=== PATIENT | female | born 1995 | race African-American/Black ===

== ENCOUNTER 2020-09-21 16:00 | Emergency (ER) | payer SELFPAY ==
[~2020-09-21] VITALS: Ht 177.8 cm; Wt 73.0 kg
[2020-09-21] MEDS ORDERED: IBUPROFEN 600MG TABLET PO ONE (16:45)
[2020-09-21] MEDS ORDERED: ACETAMINOPHEN 325MG TABLET PO ONE (18:15)
[2020-09-21] MEDS ORDERED: HYDR-4346 MT (18:27)
[2020-09-21] MEDS ORDERED: IBUP-2029 MT (18:27)
[2020-09-21 18:41] VITALS: BP 120/88
[2020-09-21] MEDS ORDERED: TETANUS, DIPHTHERIA, PERTUSSIS VAC/PF 0.5ML (>7YR OLD) IM ONE (18:45)
== END 2020-09-21 18:44 | disposition home or self-care (01) ==
LOC: ER 16:00
DX: S62.326A Displaced fracture of shaft of fifth metacarpal bone, right hand, initial encounter for closed fracture (principal); V00.831A Fall from motorized mobility scooter, initial encounter; Y93.89 Activity, other specified; Y92.89 Other specified places as the place of occurrence of the external cause; R03.0 Elevated blood-pressure reading, without diagnosis of hypertension; Z23 Encounter for immunization
CPT/HCPCS: 29125; 73110; 73130; 81025; 90471; 90715; 99284

== ENCOUNTER 2020-10-02 10:07 | Emergency (ER) | payer MEDICAID ==
[~2020-10-02] VITALS: Ht 172.7 cm; Wt 77.0 kg
[~2020-10-02 10:07] MED LIST: HYDR-4346 MT; IBUP-2029 MT
[2020-10-02 10:14] VITALS: BP 178/109
== END 2020-10-02 11:00 | disposition home or self-care (01) ==
LOC: ER 10:07
DX: S62.306A Unspecified fracture of fifth metacarpal bone, right hand, initial encounter for closed fracture (principal); Z79.899 Other long term (current) drug therapy; X58.XXXA Exposure to other specified factors, initial encounter; Y93.89 Activity, other specified; Y92.89 Other specified places as the place of occurrence of the external cause; Y99.8 Other external cause status
CPT/HCPCS: 99281